=== PATIENT | female | born 1970 | race Caucasian/White ===

== ENCOUNTER 2016-06-26 04:33 | Emergency (ER) | payer MEDICAID ==
[~2016-06-26] VITALS: Ht 162.6 cm; Wt 74.5 kg
[~2016-06-26 04:33] MED LIST: IBUP-1542 PO
[2016-06-26 04:39] VITALS: Ht 162.6 cm; Wt 74.5 kg
[2016-06-26] MEDS ORDERED: KETOROLAC 60 MG INJ IM STA (06:12)
[2016-06-26 06:32] LABS: URINE BLOOD (Dip) POC Negative (NEGATIVE)
--- NOTE | 2016-06-26 07:32 | RADRPT ---
PROCEDURE: CHEST - 1 VIEW CLINICAL INDICATION: 46-year-old female with cough and chest pain. TECHNIQUE: A single frontal AP semi-erect view of the chest was performed portably. The images we re reviewed on a PACS workstation. COMPARISON: None. FINDINGS: The cardiomediastinal silhouette has a normal appearance. There is no evidence for an infiltrate. There is no evidence for congestive heart failure. There is no evidence for pneumothorax. The osseou s structures are intact. IMPRESSION: No evidence for active cardiopulmonary disease. .Adrian Nobles MD, MD Date Time Electronically viewed and signed by .Adrian Nobles MD, on 06/26/2016 07:32 .M/
[2016-06-26] MEDS ORDERED: IBUP800T25 PO (07:43)
--- NOTE | 2016-06-26 19:30 | ERD ---
DATE OF SERVICE: HISTORY OF PRESENT ILLNESS: The patient is a 46-year-old female complaining of rib pain. She state s that she has a cough, but she also complains of some back pain. She denies any cardiac chest pain , no radiating chest pain. She has no pain with urination. She states she has had these symptoms f or the last 3 days. She is not taking medications. Denies any abdominal pain, denies change in uri nation or bowel movements. No vomiting. Has never had this before. Denies traumatic injuries. De nies hemoptysis. PAST MEDICAL HISTORY: Denies any other medical problems. ALLERGIES: DENIES ALLERGIES TO MEDICATIONS. SURGICAL HISTORY: Denies. SOCIAL HISTORY: Denies. REVIEW OF SYSTEMS: A 12-point review of systems was done. Refer to HPI for positives, all other sy stems negative. PHYSICAL EXAMINATION VITAL SIGNS: Temperature is 98.8, pulse 82, blood pressure is 108/71, respiratory rate 20, O2 satur ation 100% on room air. Pain intensity is 0/10. GENERAL: The patient is well-appearing, well-nourished, no acute distress. HEENT: Atraumatic. Conjunctivae are pink. Pupils equal, round, and reactive to light. There is no s cleral icterus. Tympanic membranes clear bilaterally. Oropharynx clear. No nystagmus or photophobia . CHEST: Clear to auscultation bilaterally. There are no rales, wheezes or rhonchi. HEART: Regular rate and rhythm. No murmurs, clicks, rubs or gallops. No S3 or S4. ABDOMEN: Soft, nontender and nondistended. Good bowel sounds. No rebound or guarding. No gross monik tonitis. No gross organomegaly or masses. No Knapp sign or McBurney point tenderness. BACK: No midline or flank tenderness. SKIN: There is no apparent rash or petechia. The skin is warm and dry. EMERGENCY ROOM COURSE: The patient had a urine checked in the ER, negative leukocytes, negative nit rites, negative protein, negative blood, negative ketones, negative urine . The patient al so had a 1-view chest x-ray done in the ER that showed no evidence for active cardiopulmonary diseas e. Patient is given Toradol in the ER. DIAGNOSIS: Rib pain, unspecified. MEDICAL DECISION MAKING: I have low suspicion for a PE, low suspicion for pneumo, low suspicion fo r cardiac emergency, low suspicion for pyelo, low suspicion for acute abdomen. Low suspicion for ba ck pain. Patient's symptoms are improved with Toradol and exams are within normal limits. DISCHARGE: The patient is discharged stable. Patient is given a prescription for ibuprofen and verito d to follow up with primary care within 1 to 2 days for reevaluation. The patient was told if sympt oms progress or worsen to return to the ER. All other questions answered at time of discharge. Dis charge summary given at the time of departure. Patient understood and complied with plan. Dictated By: BASHIR MELENDEZ for SABAS RANDALL/JAIRO Conf#: [id number] DID#: [id number]
== END 2016-06-26 07:53 | disposition home or self-care (01) ==
LOC: FTE 04:33
DX: R07.89 Other chest pain (principal)
CPT/HCPCS: 71010; 81003; 96372; J1885; Z7502